=== PATIENT | female | born 1945 ===

== ENCOUNTER → 2018-03-20 | Emergency (ER) | payer OTHER ==
[~2018-03-20] VITALS: Ht 149.9 cm; Wt 57.2 kg
[~2018-03-20] MED LIST: ACTONEL; ASA81 MG PO; CITRACAL + D CA1 TAB PO; COZAAR100 MG; CRESTOR5 MG PO; NORVASC5 MG PO; SYNTHROID100 MCG; SYNTHROID75 MCG PO; SYNTHROID88 MCG; ZETIA10 MG PO; [UNRECOGNIZED DRUG - OTHER]
== END | disposition home or self-care (01) ==
LOC: ER 12:37
DX: M25.531 Pain in right wrist (principal)